=== PATIENT | male | born 1965 | race Caucasian/White ===

== ENCOUNTER 2017-04-17 20:50 | Emergency (ER) | payer OTHER ==
--- NOTE | ~2017-04-17 | ER ---
PATIENT'S NAME: ZULY MUIR [facility] AGE: 51 Y [address] ROOM: [place] [address] LOCATION: [facility] ADMIT DATE: 04/17/2017 ER/Outpatient Report DISCHARGE DATE: 04/17/2017 FAMILY PHYSICIAN: Brett Garcia MD ATTENDING PHYSICIAN: Grant Mcintyre Time of Arrival: 2056 hours. Time of Exam: 2056 hours. CHIEF COMPLAINT: Back pain. HISTORY OF PRESENT ILLNESS: The patient states that he had some minimal back pain this morning, did not cause any problems, he took some [id number]-[id number]-glkennw medicine with minimal relief. He did take a nap, when he woke up, he said the pain was worse, he did take some oxycodone that he had at home. He states 1 hour prior to arrival the pain became quite severe. It is in the right flank area, difficulty for him to sit and get comfortable, feels short of breath with it. He has had no fever or chills. No cough. No chest pain. No nausea. No vomiting. He denies having any injury to his back, has not been hit in that area, has not fallen ALLERGIES: HE HAS NO KNOWN ALLERGIES. CURRENT MEDICATIONS: On the chart and reviewed by me. PAST MEDICAL HISTORY: Lki-cwgroby-ccrpqbxqk diabetic and hypertension. PAST SURGERIES: Right hip repair and Achilles tendon repair from a fall. SOCIAL HISTORY: Denies use of tobacco, drugs, or alcohol. REVIEW OF SYSTEMS: All negative other than those mentioned in the HPI. PHYSICAL EXAMINATION: VITAL SIGNS: He weighed 90.8 kg. Blood pressure was 147/98, pulse of 132, respirations 26, temperature of 97.2, and O2 saturation was 95% on room air. GENERAL: He is awake, alert, and oriented x4. PATIENT'S NAME: ZULY MUIR [facility] AGE: 51 Y [address] ROOM: [place] [address] LOCATION: [facility] ADMIT DATE: 04/17/2017 ER/Outpatient Report DISCHARGE DATE: 04/17/2017 FAMILY PHYSICIAN: Brett Garcia MD ATTENDING PHYSICIAN: Grant Mcintyre SKIN: [place], warm, and dry. RESPIRATIONS: Even and nonlabored. He is pacing in the room. He states he is not able to get comfortable. Lung sounds were clear throughout. CARDIOVASCULAR: Heart is tachy but regular. ABDOMEN: Soft, nondistended. Bowel sounds are present. He does not have flank pain with palpation. EMERGENCY ROOM COURSE: Saline lock was initiated. Fluids of normal saline were started at a wide- open rate. Zofran was given 4 mg IV and Toradol 30 mg IV. Lab work showsa white count of 14.4, hemoglobin of 16.9, and hematocrit is 49.2. Chem Panel: Sodium is 135, potassium 3.8, chloride 101, and his glucose is 148. Lactate was 2.2 with a procalcitonin of less than 0.05. Did CT per stone protocol, radiologist reports it is negative. The patient continued to have shortness of breath. EKG was completed, it shows sinus rhythm. Cardiac enzymes were run, they are negative. D-dimer was done, it is normal. The patient was able to get some rest on the cart, was able to sit still. States the pain had eased, the deep breaths do tend to increase the pain. He was able to ambulate to the bathroom without feeling dizzy or lightheaded. UA was obtained. UA: leukocytes and nitrites are negative. He does have 1000 glucose, blood was 25. Micro shows negative white blood cells, negative bacteria. He continued to rest comfortably on the cart. Results of the tests were reviewed with the patient. IMPRESSION: Right back flank pain. PLAN: Home, rest, fluids. A prescription was given for [place] and Flexeril. If his symptoms persist or worsen, he should follow up with his primary provider. JOSE MARIA LO APRN FOR DO DEBBY SWANSON/leonel /[id number] d: 04/18/17 0114 t: 04/25/17 1233, OUTPATIENT REPORT
[2017-04-17 21:19] LABS: BASOPHIL # 0.1 K/uL (0.0-0.2); BASOPHIL % 0.7 %; EOSINOPHIL # 0.2 K/uL (0.0-0.5); EOSINOPHIL % 1.6 %; HEMATOCRIT 49.2 % (37.0-53.0); HEMOGLOBIN 16.9 g/dL (12.0-17.0); IMMATURE GRANULOCYTE % 0.3 %; LYMPHOCYTE # 2.7 K/uL (0.8-4.0); LYMPHOCYTE % 18.6 %; MCH 30.8 pg (27.0-34.0); MCHC 34.3 gm/dL (32.0-36.5); MCV 89.6 fl (83.0-98.0); MONOCYTE # 1.4 K/uL (0.0-1.0); MONOCYTE % 9.9 %; MPV 9.5 fl (9.4-12.4); NEUTROPHIL # (ANC) 9.9 K/uL (1.4-9.0); NEUTROPHIL % 68.9 %; NRBC % 0 /100WBC (0-0.00); PLATELET COUNT 301 K/uL (150-450); RBC 5.49 M/uL (4.00-6.00); RDW-CV 12.8 % (11.9-14.6); WBC 14.4 K/uL (4.0-11.0)
[2017-04-17 21:37] LABS: ALBUMIN 4.2 gm/dL (3.5-5.0); CALCIUM 9.4 mg/dL (8.5-10.5); CREATININE 1.1 mg/dL (0.6-1.3); TOTAL BILIRUBIN 0.4 mg/dL (0.0-1.5); TOTAL PROTEIN 8.3 g/dL (6.0-8.4)
[2017-04-17 21:38] LABS: ANION GAP 11.8 (10.0-19.0)
[2017-04-17 21:39] LABS: POTASSIUM 3.8 mMol/L (3.7-5.1)
[2017-04-17 22:03] LABS: CPK 102 IU/L (35-332)
[2017-04-17 22:38] LABS: BILIRUBIN URINE NEGATIVE (NEGATIVE); BLOOD URINE 25 /UL (NEGATIVE); COLOR URINE YELLOW (YELLOW); GLUCOSE URINE 1000 mg/dL (NEGATIVE); KETONE URINE NEGATIVE (NEGATIVE); LEUKOCYTES URINE NEGATIVE /UL (NEGATIVE); NITRITE URINE NEGATIVE (NEGATIVE); PH URINE 6.5 (4.0-8.0); PROTEIN URINE NEGATIVE (NEGATIVE); SPEC GRAVITY URINE 1.005 (1.003-1.035); TURBIDITY URINE CLEAR (CLEAR); UROBILINOGEN URINE NORMAL (NORMAL)
[2017-04-17 22:48] LABS: BACTERIA URINE NEGATIVE (NEGATIVE); EPITHELIAL URINE RARE #/HPF (NEGATIVE); WBC URINE NEGATIVE #/HPF (NEGATIVE)
== END 2017-04-17 23:07 | disposition disaster alternative care site (69) ==
LOC: GMED 20:50
PROVIDERS: Nurse Practitioner Family
DX: R10.9 Unspecified abdominal pain (principal); M54.9 Dorsalgia, unspecified; I10 Essential (primary) hypertension; E11.9 Type 2 diabetes mellitus without complications; Z98.890 Other specified postprocedural states; Z79.84 Long term (current) use of oral hypoglycemic drugs; Z79.899 Other long term (current) drug therapy
CPT/HCPCS: J1885; J2405; J7030